=== PATIENT | male | born 1980 | race Caucasian/White ===

== ENCOUNTER 2017-03-21 19:26 | Observation (INO) | payer OTHER ==
[~2017-03-21] VITALS: Ht 182.9 cm; Wt 109.0 kg
[2017-03-21 19:29] VITALS: BP 141/85; PULSE 110; RESP 16; TEMP 98.5; O2SAT 100
[2017-03-21 21:39] VITALS: BP 155/98; PULSE 124; RESP 18; O2SAT 97
--- NOTE | 2017-03-21 22:00 | PD ---
HPI Chief Complaint: Numbness/Tingling Time Seen by Provider: 21:33 Travel History International Travel<30 days: No Contact w/Intl Traveler<30days: No Traveled to known affect area: No History of Present Illness HPI This is a 37-year-old male who presents to the emergency Department with onset of bilateral lower extremity weakness that started about 3 hours ago while he was out to dinner. Patient reports that he got up from a barstool and was unable to walk and fell. He reports that for the past 3 days he has been having low back pain ever since he started up on Friday and his low back and feel right. He describes a sharp stabbing pain in the left lower back, intermittent, worse with walking. He says his back pain is nearly resolved. Today he went to an urgent care for the pain and they gave him an injection of steroids and an injection of "a pain medicine that will make you loopy like morphine". Subsequently his pain improved but he developed weakness and numbness in his legs this afternoon. He's not had any recent illness, denies any recent diarrhea, new medications, or recent vaccinations. [facility] Past Medical History Diminished Hearing: No Tetanus Vaccination: < 5 Years ?: Not Past Surgical History Abdominal Surgery: No Cardiac Surgery: No Ear Surgery: No Endocrine Surgery: No Eye Surgery: Yes (PRK BILAT EYE) Social History Alcohol Use: Yes Tobacco Use: No Substance Use: No Allergies-Medications (Allergen,Severity, Reaction): Coded Allergies: No Known Allergies (Unverified , 03/21/17) Review of Systems Except as stated in HPI: all other systems reviewed are Neg Physical Exam Narrative GENERAL:Well appearing, no acute distress SKIN: Focused skin assessment warm and dry. HEAD: Atraumatic. Normocephalic. EYES: Pupils equal and round. No injection or drainage. ENT: Moist mucous membranes NECK: Trachea midline. CARDIOVASCULAR: Regular rate and rhythm. No murmur appreciated. RESPIRATORY: Clear to auscultation. Breath sounds equal bilaterally. GASTROINTESTINAL: Abdomen soft, non-tender, nondistended. MUSCULOSKELETAL: No obvious deformities. NEUROLOGICAL: Awake and alert. No obvious cranial nerve deficits. 4 out of 5 strength in the bilateral lower extremities. No clonus. Hyporeflexic patellar and Achilles reflexes. PSYCHIATRIC: Appropriate mood and affect; insight and judgment normal. Data Data Last Documented VS Vital Signs Date Time Temp Pulse Resp B/P (MAP) Pulse Ox O2 Delivery O2 Flow Rate FiO2 03/21/17 21:39 96 Room Air 03/21/17 21:39 124 18 155/98 (117) 03/21/17 19:29 98.5 Orders Orders Complete Blood Count With Diff (03/21/17 21:50) Comprehensive Metabolic Panel (03/21/17 21:50) ^ Insert Iv (03/21/17 21:50) Mri L Spine W/O Contrast (03/21/17 ) Sodium Chlor 0.9% 1000 Ml Inj (Ns 1000 M (03/21/17 23:15) Place In Observation (03/21/17 ) Vital Signs (Adult) Q4H (03/21/17 23:36) Activity Oob With Assistance (03/21/17 23:36) Diet Regular Basic (03/22/17 Breakfast) Sodium Chlor 0.9% 1000 Ml Inj (Ns 1000 M (03/21/17 23:36) Sodium Chloride 0.9% Flush (Ns Flush) (03/21/17 23:45) Sodium Chloride 0.9% Flush (Ns Flush) (03/22/17 09:00) Ondansetron Inj (Zofran Inj) (03/21/17 23:45) Comprehensive Metabolic Panel (03/22/17 06:00) Admit Order (Ed Use Only) (03/21/17 23:41) Complete Blood Count With Diff (03/22/17 06:00) Pt Request For Service (03/21/17 23:36) Scd Bilateral/Knee High ELIEZER.BID (03/21/17 23:36) Antwon Bilateral/Knee High ELIEZER.QSHIFT (03/21/17 23:41) Acetaminophen (Tylenol) (03/21/17 23:45) Acetamin-Hydrocod 325-5 Mg ([place] 5-325 (03/21/17 23:45) Morphine Inj (Morphine Inj) (03/21/17 23:45) Docusate Sodium-Senna (Janel-Colace) (03/22/17 09:00) Magnesium Hydroxide Liq (Milk Of Magnesi (03/21/17 23:45) Sennosides (Senokot) (03/21/17 23:45) Bisacodyl Supp (Dulcolax Supp) (03/21/17 23:45) Lactulose Liq (Lactulose Liq) (03/21/17 23:45) Consult Neurology (03/21/17 ) Labs Laboratory Tests Test 03/21/17 21:55 White Blood Count 16.1 TH/MM3 Red Blood Count 5.47 MIL/MM3 Hemoglobin 16.8 GM/DL Hematocrit 48.8 % Mean Corpuscular Volume 89.3 FL Mean Corpuscular Hemoglobin 30.8 PG Mean Corpuscular Hemoglobin Concent 34.4 % Red Cell Distribution Width 13.4 % Platelet Count 334 TH/MM3 Mean Platelet Volume 9.0 FL Neutrophils (%) (Auto) 87.3 % Lymphocytes (%) (Auto) 9.1 % Monocytes (%) (Auto) 3.1 % Eosinophils (%) (Auto) 0.1 % Basophils (%) (Auto) 0.4 % Neutrophils # (Auto) 14.1 TH/MM3 Lymphocytes # (Auto) 1.5 TH/MM3 Monocytes # (Auto) 0.5 TH/MM3 Eosinophils # (Auto) 0.0 TH/MM3 Basophils # (Auto) 0.1 TH/MM3 CBC Comment DIFF FINAL Differential Comment Blood Urea Nitrogen 13 MG/DL Creatinine 1.11 MG/DL Random Glucose 133 MG/DL Total Protein 8.3 GM/DL Albumin 4.2 GM/DL Calcium Level 9.3 MG/DL Alkaline Phosphatase 88 U/L Aspartate Amino Transf (AST/SGOT) 13 U/L Alanine Aminotransferase (ALT/SGPT) 35 U/L Total Bilirubin 0.4 MG/DL Sodium Level 137 MEQ/L Potassium Level 3.9 MEQ/L Chloride Level 105 MEQ/L Carbon Dioxide Level 22.5 MEQ/L Anion Gap 10 MEQ/L Estimat Glomerular Filtration Rate 74 ML/MIN [facility] Medical Decision Making Medical Screen Exam Complete: Yes Emergency Medical Condition: Yes Interpretation(s) Afebrile, tachycardic, hypertensive Leukocytosis 87% neutrophils Electrolytes are reassuring Differential Diagnosis Herniated disc, cauda equina syndrome, multiple sclerosis, Guillain-Melendez Narrative Course This is a 37-year-old male who presents to the emergency department with rapid onset bilateral lower extremity weakness and some numbness and tingling in both legs. He says he started with pain 2 days ago and his symptoms acutely worsened after he received a steroid injection and it medication for pain from an urgent care. He is objectively weak in both legs and hyporeflexic. Labs are obtained which were reassuring. MRI of the lumbar spine demonstrates no acute neurosurgical emergency. Patient will be admitted for neurologic evaluation. Physician Communication Physician Communication Discussed with Dr. Driscoll Diagnosis Primary Impression: Lower extremity weakness Qualified Codes: R29.898 - Other symptoms and signs involving the musculoskeletal system Admitting Information Admitting Physician Requests: Admit Chelsea Hogan MD Mar 21, 2017 22:00
[2017-03-21 22:28] LABS: AUTOMATED NEUTROPHIL # 14.1 TH/MM3 (1.8-7.7); BASOPHIL # 0.1 TH/MM3 (0-0.2); BASOPHIL % 0.4 % (0.0-2.0); EOSINOPHIL % 0.1 % (0.0-4.0); HEMATOCRIT 48.8 % (39.0-51.0); HEMO FLAGS DIFF FINAL; LYMPH % 9.1 % (9.0-44.0); LYMPHOCYTE # 1.5 TH/MM3 (1.0-4.8); MEAN CELL VOLUME 89.3 FL (80.0-100.0); MEAN CORPUSCULAR HEMOGLOBIN 30.8 PG (27.0-34.0); MEAN CORPUSCULAR HGB CONC 34.4 % (32.0-36.0); MONO % 3.1 % (0.0-8.0); NEUT % 87.3 % (16.0-70.0); PLATELET COUNT 334 TH/MM3 (150-450); RED BLOOD COUNT 5.47 MIL/MM3 (4.50-5.90); RED CELL DISTRIBUTION WIDTH 13.4 % (11.6-17.2); WHITE BLOOD COUNT 16.1 TH/MM3 (4.0-11.0)
[2017-03-21 22:44] LABS: ALT (GPT) 35 U/L (12-78); ANION GAP 10 MEQ/L (5-15); AST (GOT) 13 U/L (15-37); BICARBONATE 22.5 MEQ/L (21.0-32.0); BLOOD UREA NITROGEN 13 MG/DL (7-18); CHLORIDE 105 MEQ/L (98-107); POTASSIUM 3.9 MEQ/L (3.5-5.1); SODIUM (NA) 137 MEQ/L (136-145)
[2017-03-21 22:52] LABS: ALKALINE PHOSPHATASE 88 U/L (45-117); GLOMERULAR FILTRATION RATE 74 ML/MIN (>89); TOTAL BILIRUBIN ADULT 0.4 MG/DL (0.2-1.0)
--- NOTE | 2017-03-21 22:56 | RADRPT ---
EXAM DATE/TIME: 03/21/2017 22:22 [facility] COMPARISON: No previous studies available for comparison. INDICATIONS : Extremity weakness. MEDICAL HISTORY : Hypertension. SURGICAL HISTORY : Left shoulder. Vasectomy. Left leg. Right foot. ENCOUNTER: Initial ACUITY: 1 day PAIN SCORE: 5/10 LOCATION: Lower back. TECHNIQUE: Multiplanar multisequence MRI of the lumbar spine was performed without contrast. FINDINGS: The most caudal appearing lumbar vertebra is numbered as L5. VERTEBRAE: Homogeneous signal. Normal alignment. CONUS: Normal level and configuration. T12-L1: The thecal sac has a normal diameter. No evidence of disc bulge or protrusion. The neural foramina are patent bilaterally. L1-L2: The thecal sac has a normal diameter. No evidence of disc bulge or protrusion. The neural foramina are patent bilaterally. L2-L3: The thecal sac has a normal diameter. No evidence of disc bulge or protrusion. The neural foramina are patent bilaterally. L3-L4: There is very small, broad left paracentral/foraminal/lateral disc protrusion. Slight narrowing of th e left foramen. L4-L5: There is a small, broad right foraminal disc protrusion. Mild right foraminal stenosis. Mild bilatera l facet osteoarthritis. L5-S1: The thecal sac has a normal diameter. No evidence of disc bulge or protrusion. The neural foramina are patent bilaterally. CONCLUSION: 1. Mild degenerative changes at L3/L4 and L4/L5 as above. There slight left foraminal encroachment at L3/L4 and mild right foraminal encroachment at L4/L5. 2. Otherwise normal lumbar spine MRI. Boy Olsen MD on March 21, 2017 at 22:52 Board Certified Radiologist. This report was verified electronically.
[2017-03-21] MEDS ORDERED: SODIUM CHLOR 0.9% 1000 ML INJ 1,000 ML IV SCH (23:15)
--- NOTE | 2017-03-21 23:41 | HHI.HP ---
[facility] Service [facility] Primary Care Physician Unknown Admission Diagnosis weakness Diagnoses: (1) Lower extremity weakness Diagnosis: Principal (2) Back pain Diagnosis: Principal (3) Leukocytosis Diagnosis: Principal (4) Dehydration Diagnosis: Principal Travel History International Travel<30 Days: No Contact w/Intl Traveler <30 Da: No Traveled to Known Affected Are: No Past Family Social History Allergies: Coded Allergies: No Known Allergies (Unverified , 03/21/17) Physical Exam Vital Signs Vital Signs Date Time Temp Pulse Resp B/P (MAP) Pulse Ox O2 Delivery O2 Flow Rate FiO2 03/21/17 21:39 96 Room Air 03/21/17 21:39 124 18 155/98 (117) 97 Room Air 03/21/17 19:29 98.5 110 16 141/85 (103) 100 Room Air Physical Exam GENERAL: This is a well-nourished, well-developed patient, in no apparent distress. SKIN: No rashes, ecchymoses or lesions. Cool and dry. HEAD: Atraumatic. Normocephalic. No temporal or scalp tenderness. EYES: Pupils equal round and reactive. Extraocular motions intact. No scleral icterus. No injection or drainage. ENT: Nose without bleeding, purulent drainage or septal hematoma. Throat without erythema, tonsillar hypertrophy or exudate. Uvula midline. Airway patent. NECK: Trachea midline. No JVD or lymphadenopathy. Supple, nontender, no meningeal signs. CARDIOVASCULAR: Regular rate and rhythm without murmurs, gallops, or rubs. RESPIRATORY: Clear to auscultation. Breath sounds equal bilaterally. No wheezes , rales, or rhonchi. GASTROINTESTINAL: Abdomen soft, non-tender, nondistended. No hepato-splenomegaly , or palpable masses. No guarding. MUSCULOSKELETAL: Extremities without clubbing, cyanosis, or edema. No joint tenderness, effusion, or edema noted. No calf tenderness. Negative Homans sign bilaterally. NEUROLOGICAL: Awake and alert. Cranial nerves II through XII intact. Motor and sensory grossly within normal limits. Five out of 5 muscle strength in all muscle groups. Normal speech. Laboratory Laboratory Tests Test 03/21/17 21:55 White Blood Count 16.1 Red Blood Count 5.47 Hemoglobin 16.8 Hematocrit 48.8 Mean Corpuscular Volume 89.3 Mean Corpuscular Hemoglobin 30.8 Mean Corpuscular Hemoglobin Concent 34.4 Red Cell Distribution Width 13.4 Platelet Count 334 Mean Platelet Volume 9.0 Neutrophils (%) (Auto) 87.3 Lymphocytes (%) (Auto) 9.1 Monocytes (%) (Auto) 3.1 Eosinophils (%) (Auto) 0.1 Basophils (%) (Auto) 0.4 Neutrophils # (Auto) 14.1 Lymphocytes # (Auto) 1.5 Monocytes # (Auto) 0.5 Eosinophils # (Auto) 0.0 Basophils # (Auto) 0.1 CBC Comment DIFF FINAL Differential Comment Blood Urea Nitrogen 13 Creatinine 1.11 Random Glucose 133 Total Protein 8.3 Albumin 4.2 Calcium Level 9.3 Alkaline Phosphatase 88 Aspartate Amino Transf (AST/SGOT) 13 Alanine Aminotransferase (ALT/SGPT) 35 Total Bilirubin 0.4 Sodium Level 137 Potassium Level 3.9 Chloride Level 105 Carbon Dioxide Level 22.5 Anion Gap 10 Estimat Glomerular Filtration Rate 74 Result Diagram: 03/21/17215403/21/172154 Caprini VTE Risk Assessment Caprini VTE Risk Assessment: No/Low Risk (score <= 1) Caprini Risk Assessment Model Point Value = 1 Point Value = 2 Point Value = 3 Point Value = 5 Age 41-60 Minor surgery BMI > 25 kg/m2 Swollen legs Varicose veins or History of unexplained or recurrent spontaneous Oral contraceptives or hormone replacement Sepsis (< 1 month) Serious lung disease, including pneumonia (< 1 month) Abnormal pulmonary function Acute myocardial infarction Congestive heart failure (< 1 month) History of inflammatory bowel disease Medical patient at bed rest Age 61-74 Arthroscopic surgery Major open surgery (> 45 min) Laparoscopic surgery (> 45 min) Malignancy Confined to bed (> 72 hours) Immobilizing plaster cast Central venous access Age >= 75 History of VTE Family history of VTE Factor V Leiden Prothrombin [id number] Lupus anticoagulant Anticardiolipin antibodies Elevated serum homocysteine Heparin-induced thrombocytopenia Other congenital or acquired thrombophilia Stroke (< 1 month) Elective arthroplasty Hip, pelvis, or leg fracture Acute spinal cord injury (< 1 month) Prophylaxis Regimen Total Risk Factor Score Risk Level Prophylaxis Regimen 0-1 Low Early ambulation 2 Moderate Order ONE of the following: *Sequential Compression Device (SCD) *Heparin 5000 units SQ BID 3-4 Higher Order ONE of the following medications: *Heparin 5000 units SQ TID *Enoxaparin/Lovenox 40 mg SQ daily (WT < 150 kg, CrCl > 30 mL/min) *Enoxaparin/Lovenox 30 mg SQ daily (WT < 150 kg, CrCl > 10-29 mL/min) *Enoxaparin/Lovenox 30 mg SQ BID (WT < 150 kg, CrCl > 30 mL/min) AND/OR *Sequential Compression Device (SCD) 5 or more Highest Order ONE of the following medications: *Heparin 5000 units SQ TID (Preferred with Epidurals) *Enoxaparin/Lovenox 40 mg SQ daily (WT < 150 kg, CrCl > 30 mL/min) *Enoxaparin/Lovenox 30 mg SQ daily (WT < 150 kg, CrCl > 10-29 mL/min) *Enoxaparin/Lovenox 30 mg SQ BID (WT < 150 kg, CrCl > 30 mL/min) AND *Sequential Compression Device (SCD) Assessment and Plan Problem List: (1) Lower extremity weakness ICD Code: R29.898 - Other symptoms and signs involving the musculoskeletal system (2) Back pain ICD Code: M54.9 - Dorsalgia, unspecified (3) Dehydration ICD Code: E86.0 - Dehydration (4) Leukocytosis ICD Code: D72.829 - Elevated white blood cell count, unspecified Assessment and Plan A/P: 1. Lower Extremity Weakness: acute onset, no injury/trauma. +Hyporeflexia, ? GBS, possible LP. MRI w/ no acute findings, images reviewed by me. Eval for possible muscle disease-check CPK, U/a, aldolase, LDH. Check ESR/CRP for possible Vasculitis. Check lower extremity EMG for peripheral neuropathy. S/p steroid injection, ? steroid myopathy however very rapid onset-would need muscle biopsy. Consult Neurology for further recommendations. 2. Back Pain: s/p steroid/analgesic injection at Urgent Care, pain currently improved. Continue w/ analgesics as needed. 3. Leukocytosis: WBC 16, possibly related to steroids, however injection only few hours prior. No signs of infection at this time. Check U/a. Repeat labs in am. 4. Dehydration: GFR 74, BUN/Creatinine normal. Check U/a, IVF for hydration, repeat labs in am. 5. DVT Prophylaxis: SCD/Teds. 6. Social work for d/c planning as needed. 7. Case discussed w/ ER physician at length. Problem Qualifiers (1) Lower extremity weakness: Qualified Codes: R29.898 - Other symptoms and signs involving the musculoskeletal system Ching Jeffery MD Mar 21, 2017 23:41
[2017-03-21] MEDS ORDERED: GADODIAMIDE PF 287 MG/ML 20 ML VIAL (for RAD MRI) IVCONTRAST ONE (23:43)
[2017-03-21] MEDS ORDERED: LACTULOSE SYRUP 20 GM/30 ML CUP PO PRN (23:45)
[2017-03-21] MEDS ORDERED: SENNOSIDES 8.6 MG TAB PO PRN (23:45)
[2017-03-21] MEDS ORDERED: BISACODYL 10 MG SUPP RECTAL PRN (23:45)
[2017-03-21] MEDS ORDERED: MORPHINE SULFATE 4 MG/ML INJ IV PUSH PRN (23:45)
[2017-03-21] MEDS ORDERED: MAGNESIUM HYDROXIDE SUSP 30 ML CUP PO PRN (23:45)
[2017-03-21] MEDS ORDERED: ACETAMINOPHEN 325 MG TAB PO PRN (23:45)
[2017-03-21] MEDS ORDERED: SODIUM CHLORIDE 0.9% FLUSH 10 ML FLUSH IV FLUSH PRN (23:45)
[2017-03-21] MEDS ORDERED: ONDANSETRON HCL 4 MG/2 ML VIAL IVP PRN (23:45)
[2017-03-22] VITALS (7 sets, daily range): BP systolic 130–139; BP diastolic 66–81; PULSE 75–94; RESP 18; TEMP 97.6–98.5; O2SAT 96–98
[2017-03-22] MEDS: ACETAMINOPHEN/HYDROcodone 325 MG/5 MG TAB PO PRN ×2 (01:16→08:59)
[2017-03-22] MEDS: SODIUM CHLOR 0.9% 1000 ML INJ 1,000 ML IV SCH ×2 (01:18→08:56)
[2017-03-22 02:17] LABS: BLOOD, URINE NEG (NEG); COMMENT (UR) CULT NOT INDICATED; CULTURE IF INDICATED CULT NOT INDICATED; GLUCOSE,URINE NEG (NEG); KETONE, URINE NEG (NEG); MUCUS URINE FEW /lpf (OCC); NITRITE,URINE NEG (NEG); PH, URINE 5.5 (5.0-8.5); URINE COLOR YELLOW (YELLW/STRAW)
[2017-03-22 08:20] LABS: AUTOMATED NEUTROPHIL # 13.4 TH/MM3 (1.8-7.7); BASOPHIL % 0.1 % (0.0-2.0); EOSINOPHIL % 0.2 % (0.0-4.0); HEMATOCRIT 41.1 % (39.0-51.0); HEMO FLAGS DIFF FINAL; LYMPH % 16.3 % (9.0-44.0); LYMPHOCYTE # 2.8 TH/MM3 (1.0-4.8); MEAN CELL VOLUME 89.8 FL (80.0-100.0); MEAN CORPUSCULAR HEMOGLOBIN 31.1 PG (27.0-34.0); MEAN CORPUSCULAR HGB CONC 34.6 % (32.0-36.0); MONO % 6.5 % (0.0-8.0); NEUT % 76.9 % (16.0-70.0); PLATELET COUNT 259 TH/MM3 (150-450); RED BLOOD COUNT 4.57 MIL/MM3 (4.50-5.90); RED CELL DISTRIBUTION WIDTH 13.3 % (11.6-17.2); WHITE BLOOD COUNT 17.5 TH/MM3 (4.0-11.0)
[2017-03-22 08:50] LABS: ALKALINE PHOSPHATASE 71 U/L (45-117); ALT (GPT) 29 U/L (12-78); ANION GAP 5 MEQ/L (5-15); AST (GOT) 7 U/L (15-37); BICARBONATE 24.6 MEQ/L (21.0-32.0); BLOOD UREA NITROGEN 13 MG/DL (7-18); CHLORIDE 108 MEQ/L (98-107); GLOMERULAR FILTRATION RATE 102 ML/MIN (>89); POTASSIUM 4.1 MEQ/L (3.5-5.1); SODIUM (NA) 138 MEQ/L (136-145); TOTAL BILIRUBIN ADULT 0.4 MG/DL (0.2-1.0)
[2017-03-22] MEDS: DOCUSATE SODIUM 50 MG/SENNA 8.6 MG TAB PO SCH ×2 (08:55→21:00)
[2017-03-22] MEDS: SODIUM CHLORIDE 0.9% FLUSH 10 ML FLUSH IV FLUSH SCH ×2 (08:55→21:00)
[2017-03-22] MEDS ORDERED: INFLUENZA VIRUS VACCINE (QUADRIVALENT) 0.5 ML SYR IM ONE (09:00)
[2017-03-22] MEDS ORDERED: PNEUMOCOCCAL POLYVALENT INJ 25 MCG/0.5 ML SYR IM ONE (09:00)
--- NOTE | 2017-03-22 09:53 | HHI.PR ---
Subjective Remarks Follow up for back pain, bilateral lower extremity weakness. The patient reports Friday night 03/19 he stood up from the cough and felt immediate left lumbar pain with radiation into the left buttocks. That night and throughout the next day he was taking motrin and using ice packs however pain was unrelieved therefore yesterday 03/21 he went to [facility] in the morning. At the urgent care, he received IM Decadron and IM Toradol then given prescriptions for Ultram, Medrol dose pack, and Flexeril, which he filled but did not yet take any yet. He went to dinner 6hours later, ordered an appetizer and drank half a beer, then stood up to use the restroom however his legs gave out on him and he was unable to walk. Today he feels better but not yet back to baseline. He is able to ambulate the hallways without difficulty. He has continued left lower lumbar pain. Denies any saddle anesthesia or incontinence. Denies any other medical complaints at this time. 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 Objective Vitals Vital Signs Date Time Temp Pulse Resp B/P (MAP) Pulse Ox O2 Delivery O2 Flow Rate FiO2 03/22/17 08:48 97.9 90 18 131/80 (97) 98 03/22/17 04:24 98.2 86 18 137/67 (90) 96 03/22/17 02:35 15 03/22/17 01:21 98.4 90 18 138/75 (96) 96 03/21/17 21:39 96 Room Air 03/21/17 21:39 124 18 155/98 (117) 97 Room Air 03/21/17 19:29 98.5 110 16 141/85 (103) 100 Room Air I/O 03/21/17 03/21/17 03/21/17 03/22/17 03/22/17 03/22/17 07:00 15:00 23:00 07:00 15:00 23:00 Intake Total 800 ml Balance 800 ml Intake IV Total 800 ml Result Diagram: 03/22/17 0700 03/22/17 0700 Imaging Last Impressions Lumbar Spine MRI 03/21/17 0000 Signed Impressions: Service Date/Time: Tuesday, March 21, 2017 22:22 - CONCLUSION: 1. Mild degenerative changes at L3/L4 and L4/L5 as above. There slight left foraminal encroachment at L3/L4 and mild right foraminal encroachment at L4/L5. 2. Otherwise normal lumbar spine MRI. Boy Olsen MD Objective Remarks GENERAL: Well-nourished, well-developed middle age male patient in [facility]. SKIN: Warm and dry. No rash. HEENT: Normocephalic. Atraumatic. Pupils equal and round. Mucous membranes pink and moist. NECK: Supple. Trachea midline. CARDIOVASCULAR: Regular rate and rhythm. S1, S2 noted. No murmur appreciated. RESPIRATORY: No accessory muscle use. Clear to auscultation. Breath sounds equal bilaterally. GASTROINTESTINAL: Abdomen soft, non-tender, nondistended. Normoactive bowel sounds x4. MUSCULOSKELETAL: No obvious deformities. Extremities without clubbing, cyanosis , or edema. Left lumbar paraspinous muscle TTP with +spasm. NEUROLOGICAL: Awake and alert. No obvious cranial nerve deficits. Motor grossly within normal limits. 5/5 muscle strength in bilateral upper and lower extremities. Normal speech. PSYCHIATRIC: Appropriate mood and affect; insight and judgment normal. Medications and IVs Current Medications Medications (Trade) Dose Ordered Sig/Jimena Route Start Time Stop Time Status Last Admin Sodium Chloride 1,000 ml @ 100 mls/hr Q10H IV 03/21/17 23:36 03/22/17 08:56 (NS Flush) 2 ml UNSCH PRN IV FLUSH 03/21/17 23:45 (NS Flush) 2 ml BID IV FLUSH 03/22/17 09:00 03/22/17 08:55 (Zofran Inj) 4 mg Q6H PRN IVP 03/21/17 23:45 (Tylenol) 650 mg Q6H PRN PO 03/21/17 23:45 ([place] 5-325 Mg) 1 tab Q4H PRN PO 03/21/17 23:45 03/22/17 08:59 (Morphine Inj) 4 mg Q3H PRN IV PUSH 03/21/17 23:45 (Janel-Colace) 1 tab BID PO 03/22/17 09:00 (Milk Of Magnesia Liq) 30 ml Q12H PRN PO 03/21/17 23:45 (Senokot) 17.2 mg Q12H PRN PO 03/21/17 23:45 (Dulcolax Supp) 10 mg DAILY PRN RECTAL 03/21/17 23:45 (Lactulose Liq) 30 ml DAILY PRN PO 03/21/17 23:45 A/P Problem List: (1) Lower extremity weakness ICD Code: R29.898 - Other symptoms and signs involving the musculoskeletal system (2) Back pain ICD Code: M54.9 - Dorsalgia, unspecified (3) Dehydration ICD Code: E86.0 - Dehydration (4) Leukocytosis ICD Code: D72.829 - Elevated white blood cell count, unspecified Assessment and Plan 37-year-old male with no significant past medical history, s/p 20years service with [employer], presents with a 3day history of intractable low back pain, and acute onset lower extremity weakness Acute Bilateral Lower Extremity Weakness: no recent injury/trauma, however 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 Possible medication side effect. + Hyporeflexia, ? GBS, possible LP? MRI with some degenerative changes, no acute findings, images reviewed by me. Eval for possible muscle disease-check CPK, U/ a, aldolase, LDH. Check ESR/CRP for possible Vasculitis, ESR negative, CRP pending. Check lower extremity EMG for peripheral neuropathy. S/p steroid injection, ? steroid myopathy however very rapid onset-would need muscle biopsy. Consult Neurology for further recommendations. Consult PT. Lumbar Pain: s/p steroid/analgesic injection at Urgent Care, pain currently improved. Continue w/ analgesics as needed. K thermia. Scheduled IV Toradol. Leukocytosis: WBC 16, possibly related to steroids, however injection only few hours prior. No signs of infection at this time. Afebrile. UA negative. Dehydration: GFR 74, Cr 1.11. Given IVF for hydration, repeat labs show improvement with Cr 0.84. Encourage oral hydration. DVT Prophylaxis: SCD/Teds. Discharge Planning 0950hrs: Discharge pending further clinical improvement and evaluation by neurology. Problem Qualifiers (1) Lower extremity weakness: Qualified Codes: R29.898 - Other symptoms and signs involving the musculoskeletal system Esmer Ramon PA-C Mar 22, 2017 9:53 am
[2017-03-22] MEDS ORDERED: CYCLOBENZAPRINE HCL 10 MG TAB PO PRN (10:30)
[2017-03-22] MEDS ORDERED: KETOROLAC TROMETHAMINE 30 MG/ML (IVP) VIAL IV PUSH SCH (12:00)
--- NOTE | 2017-03-22 14:52 | RADRPT ---
EXAM DATE/TIME: 03/22/2017 14:09 [facility] COMPARISON: No previous studies available for comparison. INDICATIONS : Inability to ambulate. Resolving. MEDICAL HISTORY : Hypertension. SURGICAL HISTORY : Colon resection. Orthopaedic. ENCOUNTER: Initial ACUITY: 1 day PAIN SCORE: 0/10 LOCATION: [place] TECHNIQUE: Multiplanar multisequence MRI of the thoracic spine was performed. FINDINGS: VERTEBRA: Normal vertebral body height. Focal increased T1 and decreased T2 signal in the T5 vertebral bod y likely reflecting a small hemangioma. Otherwise, homogeneous marrow signal. ALIGNMENT: Normal. CORD: Normal position and configuration. T1-T2: Normal. T2-T3: The thecal sac has a normal diameter. No evidence of disc bulge or protrusion. T3-T4: The thecal sac has a normal diameter. No evidence of disc bulge or protrusion. T4-T5: The thecal sac has a normal diameter. No evidence of disc bulge or protrusion. T5-T6: The thecal sac has a normal diameter. No evidence of disc bulge or protrusion. T6-T7: Eccentric left paracentral disc osteophyte complex effacing the anterior left lateral recess. No sign ificant neural foraminal stenosis. T7-T8: Central posterior disc protrusion with mild effacement of the anterior thecal sac. No significant rosana tral canal or neural foraminal stenosis. T8-T9: The thecal sac has a normal diameter. No evidence of disc bulge or protrusion. T9-T10: The thecal sac has a normal diameter. No evidence of disc bulge or protrusion. T10-T11: The thecal sac has a normal diameter. No evidence of disc bulge or protrusion. T11-T12: The thecal sac has a normal diameter. No evidence of disc bulge or protrusion. T12-L1: The thecal sac has a normal diameter. No evidence of disc bulge or protrusion. CONCLUSION: 1. Probable small T5 vertebral body Hemangioma. 2. Mild degenerative spondylosis of the mid thoracic spine most prominently at T6-7 with eccentric le ft paracentral disc osteophyte complex effacing the anterior left lateral recess and flattening the a nterior cord. 3. Otherwise, no significant central canal stenosis or cord signal abnormality. Morgan Logan MD on March 22, 2017 at 14:45 Board Certified Radiologist. This report was verified electronically.
--- NOTE | 2017-03-22 15:11 | MB ---
cc: JUAN MIGUEL FINK M.D. DATE OF CONSULTATION: 03/22/2017. REASON FOR CONSULTATION: Lower extremity weakness. HISTORY OF PRESENT ILLNESS: Mr. Aguilera is a 37-year-old man who for the past couple of days has had new-onset low back pain. Yesterday he went an urgent care where he was given an injection of Decadron and placed on a Medrol Dosepack. Yesterday evening around 6:30 in the evening when he stood up from a seated position, he fell because of leg weakness. He had profound weakness in both legs with difficulty in moving the legs as well as numbness from the thigh area down. No bladder complaints. His legs are stronger today. He denied any other neurologic complaints. No history of upper extremity weakness. No visual complaints. PAST MEDICAL HISTORY: 1. He has a history of hypertension. 2. History of eye surgery bilaterally. ALLERGIES: NONE KNOWN. CURRENT MEDICATIONS: 1. Flexeril for pain. 2. Colace. 3. Zofran PRN. 4. Tylenol PRN. 5. Bradley PRN. 6. Dulcolax. 7. Senokot. NEUROLOGICAL EXAMINATION: VITAL SIGNS: Blood pressure is 139/81, pulse 85, respiratory rate 18, temperature is 97.6 degrees. HIGHER CORTICAL FUNCTIONS: Normal. CRANIAL NERVES: Intact. Pupils equal and reactive. The extraocular movements are normal. MOTOR EXAM: Normal in both upper extremities. He has weakness of the iliopsoas symmetrically at 4/5 on the right and 4+/5 left. Quads are 5/5 symmetric. Hamstrings 4+/5 on the right and 5/5 on the left. Tibialis anterior 5/5 symmetric. Gastrocnemius 5/5 symmetric. SENSORY EXAM: Intact. REFLEXES: 2+ symmetric with no Babinski sign. IMAGING STUDIES: MRI of the lumbar spine was reviewed. Mild degenerative disc disease identified at L3-4 and L4-5 areas with no evidence of any significant stenosis. The conus medullaris is normal. LABS: White count 17,500, hemoglobin is 14.2, platelet count 259,000, hematocrit 41.1%. Sedimentation rate is 11. Sodium 138, potassium 4.1, chloride 108, carbon dioxide 24.6, the BUN is 13, creatinine 0.84, GFR is 102, glucose 102. C-reactive protein 0.3. CPK 85. IMPRESSION: He has mild spondylosis on the lumbar MRI but I would not expect this to account for his symptoms. Rule out cervical or thoracic myelopathy. With the sudden onset, we need to rule out other etiologies such as spinal cord infarction, AVM, structural lesion, or transverse myelitis. RECOMMENDATIONS: Would like to proceed with an MRI of the cervical as well as the thoracic spine. MD BESS Lozano/TREV /1:27 PM /2:56 PM
--- NOTE | 2017-03-22 15:14 | RADRPT ---
EXAM DATE/TIME: 03/22/2017 14:09 [facility] COMPARISON: No previous studies available for comparison. INDICATIONS : Myelopathy. Inability to ambulate, resolving. MEDICAL HISTORY : Hypertension. SURGICAL HISTORY : Colon resection. Orthopaedic. ENCOUNTER: Initial ACUITY: 1 day PAIN SCORE: 0/10 LOCATION: Paraspinal TECHNIQUE: Multiplanar, multisequence MRI examination of the cervical spine was performed. FINDINGS: VERTEBRAE: Normal vertebral body height. Homogeneous marrow signal. ALIGNMENT: No evidence of subluxation. CORD: Normal configuration and signal. POST FOSSA: The cerebellar tonsils are normal in position. C2-C3: The thecal sac has a normal configuration. There is no evidence of disc herniation or spinal canal s tenosis. The neural foramina are patent bilaterally. C3-C4: Diffuse disc bulge and uncovertebral osteophytes. Mild bilateral facet arthropathy. Effacement of the anterior thecal sac and abutting the cord with subtle flattening of the cord. No cord signal abnorma lity. Moderate bilateral neural foraminal stenosis. C4-C5: Minimal uncovertebral osteophytes and facet arthropathy without significant central canal or neural f oraminal stenosis. C5-C6: Minimal uncovertebral osteophytes and facet arthropathy. No significant central canal or neural jessica inal stenosis. C6-C7: Diffuse disc bulge with uncovertebral osteophytes. Mild effacement of the anterior thecal sac. Modera te right neural foraminal stenosis. C7-T1: Left paracentral disc osteophyte complex effacing the left lateral recess. No significant neural fora enid stenosis. CONCLUSION: 1. Multilevel degenerative spondylosis most prominently at C3-4 and C6-T1, as above. 2. No significant cord signal abnormality. Morgan Logan MD on March 22, 2017 at 15:08 Board Certified Radiologist. This report was verified electronically.
[2017-03-22] MEDS ORDERED: AMBI10TA PO (18:27)
[2017-03-22] MEDS: ZOLPIDEM TARTRATE 10 MG TAB PO PRN (21:06)
[2017-03-23] MEDS: SODIUM CHLOR 0.9% 1000 ML INJ 1,000 ML IV SCH ×3 (03:30→14:47)
[2017-03-23 03:40] VITALS: BP 134/63; PULSE 95; RESP 18; TEMP 98.7; O2SAT 97
[2017-03-23 07:42] VITALS: BP 160/107; PULSE 83; RESP 20; TEMP 98; O2SAT 96
[2017-03-23] MEDS: DOCUSATE SODIUM 50 MG/SENNA 8.6 MG TAB PO SCH ×2 (08:00→20:27)
[2017-03-23] MEDS: SODIUM CHLORIDE 0.9% FLUSH 10 ML FLUSH IV FLUSH SCH ×2 (08:00→20:27)
--- NOTE | 2017-03-23 11:09 | HHI.PR ---
Review/Management Diagnosis bilateral LE weakness of abrupt onset now improving--possible thoracic myelopathy.?? due to mild spondylosis at T56. r/o spinal AVM. I doubt transverse myelitis with abrupt onset and rapid improvement. THe time course is not consistent with Guillain [place]. Plan MRI cervical and thoracic spine with and without contrast MRI brain--r/o MS neurosurgery consult for opinion regarding thoracic MRI Diagnosis/Plan: Subjective Subjective Comments No acute events reported He reports improvement in LE strength but still has some weakness Active Medications Current Medications Medications (Trade) Dose Ordered Sig/Jimena Route Start Time Stop Time Status Last Admin Sodium Chloride 1,000 ml @ 100 mls/hr Q10H IV 03/21/17 23:36 03/23/17 03:30 (NS Flush) 2 ml UNSCH PRN IV FLUSH 03/21/17 23:45 (NS Flush) 2 ml BID IV FLUSH 03/22/17 09:00 03/22/17 08:55 (Zofran Inj) 4 mg Q6H PRN IVP 03/21/17 23:45 (Tylenol) 650 mg Q6H PRN PO 03/21/17 23:45 ([place] 5-325 Mg) 1 tab Q4H PRN PO 03/21/17 23:45 03/22/17 08:59 (Morphine Inj) 4 mg Q3H PRN IV PUSH 03/21/17 23:45 (Janel-Colace) 1 tab BID PO 03/22/17 09:00 (Milk Of Magnesia Liq) 30 ml Q12H PRN PO 03/21/17 23:45 (Senokot) 17.2 mg Q12H PRN PO 03/21/17 23:45 (Dulcolax Supp) 10 mg DAILY PRN RECTAL 03/21/17 23:45 (Lactulose Liq) 30 ml DAILY PRN PO 03/21/17 23:45 (Flexeril) 10 mg Q8H PRN PO 03/22/17 10:30 03/23/17 07:46 (Ambien) 20 mg HS PRN PO 03/22/17 18:30 03/22/17 21:06 Allergies Allergies Coded Allergies No Known Allergies (Unverified03/21/17) Exam I&O / VS Vital Signs Date Time Temp Pulse Resp B/P (MAP) Pulse Ox O2 Delivery O2 Flow Rate FiO2 03/23/17 07:42 98.0 83 20 160/107 (124) 96 03/23/17 03:40 98.7 95 18 134/63 (86) 97 03/22/17 23:23 98.4 76 18 130/76 (94) 97 03/22/17 19:34 98.2 75 18 130/78 (95) 97 03/22/17 15:06 98.5 94 18 137/66 (89) 97 03/22/17 11:28 97.6 85 18 139/81 (100) 97 Exam Comments alert, speech normal CN intact MOTOR 5/5 BUE and 4/5 right iliopsoas. 4+/5 left iliopsoas 4+/5 bilateral quadriceps. 4/5 right hamstring and 4+/5 left hamstring. 5/5 tibialis anterior bilaterally DTR 1+ symmetric Objective Radiology Results MRI cervical spine--cervical spondylosis at several levels without cord compresson MRI t spine--spondylosis at T56 with anterior cord compression but no signal abnormality within the cord and still rim of CSF around cord Ricky Montaño PhD MD Mar 23, 2017 11:09
--- NOTE | 2017-03-23 11:29 | HHI.PR ---
Subjective Remarks Follow up for low back pain, BLE weakness. The patient reports continued left lumbar pain, no radiation. He does not want any pain medications. He reports continued bilateral lower extremity weakness although has been able to ambulate. He denies any distal numbness or tingling. He has no other medical complaints at this time. Objective Vitals Vital Signs Date Time Temp Pulse Resp B/P (MAP) Pulse Ox O2 Delivery O2 Flow Rate FiO2 03/23/17 07:42 98.0 83 20 160/107 (124) 96 03/23/17 03:40 98.7 95 18 134/63 (86) 97 03/22/17 23:23 98.4 76 18 130/76 (94) 97 03/22/17 19:34 98.2 75 18 130/78 (95) 97 03/22/17 15:06 98.5 94 18 137/66 (89) 97 03/22/17 11:28 97.6 85 18 139/81 (100) 97 I/O 03/22/17 03/22/17 03/22/17 03/23/17 03/23/17 03/23/17 06:59 14:59 22:59 06:59 14:59 22:59 Intake Total 800 ml Output Total 500 ml Balance 300 ml Intake IV Total 800 ml Output Urine Total 500 ml Result Diagram: 03/22/17 0700 03/22/17 0700 Imaging Last Impressions Thoracic Spine MRI 03/22/17 0000 Signed Impressions: Service Date/Time: Wednesday, March 22, 2017 14:09 - CONCLUSION: 1. Probable small T5 vertebral body Hemangioma. 2. Mild degenerative spondylosis of the mid thoracic spine most prominently at T6-7 with eccentric left paracentral disc osteophyte complex effacing the anterior left lateral recess and flattening the anterior cord. 3. Otherwise, no significant central canal stenosis or cord signal abnormality. Morgan Logan MD Cervical Spine MRI 03/22/17 0000 Signed Impressions: Service Date/Time: Wednesday, March 22, 2017 14:09 - CONCLUSION: 1. Multilevel degenerative spondylosis most prominently at C3-4 and C6-T1, as above. 2. No significant cord signal abnormality. Morgan Logan MD Lumbar Spine MRI 03/21/17 0000 Signed Impressions: Service Date/Time: Tuesday, March 21, 2017 22:22 - CONCLUSION: 1. Mild degenerative changes at L3/L4 and L4/L5 as above. There slight left foraminal encroachment at L3/L4 and mild right foraminal encroachment at L4/L5. 2. Otherwise normal lumbar spine MRI. Boy Olsen MD Objective Remarks GENERAL: Well-nourished, well-developed middle age male patient in [facility]. SKIN: Warm and dry. No rash. HEENT: Normocephalic. Atraumatic. Pupils equal and round. Mucous membranes pink and moist. NECK: Supple. Trachea midline. CARDIOVASCULAR: Regular rate and rhythm. S1, S2 noted. No murmur appreciated. RESPIRATORY: No accessory muscle use. Clear to auscultation. Breath sounds equal bilaterally. GASTROINTESTINAL: Abdomen soft, non-tender, nondistended. Normoactive bowel sounds x4. MUSCULOSKELETAL: No obvious deformities. Extremities without clubbing, cyanosis , or edema. Left lumbar paraspinous muscle TTP with +spasm. NEUROLOGICAL: Awake and alert. No obvious cranial nerve deficits. Motor grossly within normal limits. 5/5 muscle strength in bilateral upper and lower extremities. Normal speech. PSYCHIATRIC: Appropriate mood and affect; insight and judgment normal. Medications and IVs Current Medications Medications (Trade) Dose Ordered Sig/Jimena Route Start Time Stop Time Status Last Admin Sodium Chloride 1,000 ml @ 100 mls/hr Q10H IV 03/21/17 23:36 03/23/17 03:30 (NS Flush) 2 ml UNSCH PRN IV FLUSH 03/21/17 23:45 (NS Flush) 2 ml BID IV FLUSH 03/22/17 09:00 03/22/17 08:55 (Zofran Inj) 4 mg Q6H PRN IVP 03/21/17 23:45 (Tylenol) 650 mg Q6H PRN PO 03/21/17 23:45 ([place] 5-325 Mg) 1 tab Q4H PRN PO 03/21/17 23:45 03/22/17 08:59 (Morphine Inj) 4 mg Q3H PRN IV PUSH 03/21/17 23:45 (Janel-Colace) 1 tab BID PO 03/22/17 09:00 (Milk Of Magnesia Liq) 30 ml Q12H PRN PO 03/21/17 23:45 (Senokot) 17.2 mg Q12H PRN PO 03/21/17 23:45 (Dulcolax Supp) 10 mg DAILY PRN RECTAL 03/21/17 23:45 (Lactulose Liq) 30 ml DAILY PRN PO 03/21/17 23:45 (Flexeril) 10 mg Q8H PRN PO 03/22/17 10:30 03/23/17 07:46 (Ambien) 20 mg HS PRN PO 03/22/17 18:30 03/22/17 21:06 A/P Problem List: (1) Lower extremity weakness ICD Code: R29.898 - Other symptoms and signs involving the musculoskeletal system (2) Back pain ICD Code: M54.9 - Dorsalgia, unspecified (3) Dehydration ICD Code: E86.0 - Dehydration (4) Leukocytosis ICD Code: D72.829 - Elevated white blood cell count, unspecified Assessment and Plan 37-year-old male with no significant past medical history, s/p 20years service with [employer], presents with a 3day history of intractable low back pain, and acute onset lower extremity weakness Acute Bilateral Lower Extremity Weakness: no recent injury/trauma, however 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 Possible medication side effect. + Hyporeflexia. Possible myelopathy. Not consistent with Guillain [place]. -Lumbar MRI with some degenerative changes, no acute findings, images reviewed by me. -Cervical MRI with multilevel degenerative spondylosis; no significant cord signal abnormality -Thoracic MRI with probable small T5 vertebral body hemagioma; spondylosis of mid thoracic spine at T6-7 -Eval for possible muscle disease-check CPK/ESR wnl, U/a negative, aldolase pending, LDH wnl. -Check lower extremity EMG for peripheral neuropathy. -S/p steroid injection, ? steroid myopathy however very rapid onset-would need muscle biopsy. -Consulted Neurology, appreciate recommendations. -Consult PT. -Neurosurgery consulted Lumbar Pain: s/p steroid/analgesic injection at Urgent Care, pain currently improved. Continue w/ analgesics as needed. K thermia. Leukocytosis: WBC 16, possibly related to steroids, however injection only few hours prior. No signs of infection at this time. Afebrile. UA negative. Dehydration: GFR 74, Cr 1.11. Given IVF for hydration, repeat labs show improvement with Cr 0.84. Encourage oral hydration. DVT Prophylaxis: SCD/Teds. Discharge Planning Discharge pending further clinical improvement, work up, and evaluation by neurosurgery. Possible discharge tomorrow. Problem Qualifiers (1) Lower extremity weakness: Qualified Codes: R29.898 - Other symptoms and signs involving the musculoskeletal system Esmer Ramon PA-C Mar 23, 2017 11:29 am
[2017-03-23 11:33] VITALS: BP 137/83; PULSE 87; RESP 20; TEMP 98.2; O2SAT 97
--- NOTE | 2017-03-23 13:43 | RADRPT ---
EXAM DATE/TIME: 03/23/2017 12:28 [facility] COMPARISON: No previous studies available for comparison. INDICATIONS : Inability to ambulate. Spinal AVM. CONTRAST: 20 cc Omniscan (gadodiamide) IV MEDICAL HISTORY : Hypertension. SURGICAL HISTORY : Orthodpedic. ENCOUNTER: Initial ACUITY: 3 day PAIN SCORE: 3/10 LOCATION: Paraspinal TECHNIQUE: Multiplanar, multisequence MRI of the brain was performed both prior to and following the administrat ion of paramagnetic contrast. FINDINGS: CEREBRUM: The ventricles are normal for age. No evidence of midline shift, mass lesion, hemorrhage or acute in farction. No extraaxial fluid collections are seen. The pituitary gland and suprasellar cistern are normal in configuration. WHITE MATTER: No significant signal abnormalities are seen in the white matter. POSTERIOR FOSSA: The cerebellum and brainstem are intact. The 4th ventricle is midline. The cerebellopontine angle is unremarkable. The cerebellar tonsils are normal in position. DIFFUSION IMAGING: No focal areas of restricted diffusion are seen. No evidence of acute infarction. EXTRACRANIAL: The visualized portions of the orbits and paranasal sinuses are unremarkable. POST-CONTRAST: No abnormal areas of parenchymal or dural enhancement. No evidence of blood-brain barrier breakdown. CONCLUSION: Normal examination. Marquise Plaza MD on March 23, 2017 at 13:41 Board Certified Radiologist. This report was verified electronically.
--- NOTE | 2017-03-23 13:46 | RADRPT ---
EXAM DATE/TIME: 03/23/2017 12:28 [facility] COMPARISON: MRI CERVICAL SPINE W/O CONTRAST, March 22, 2017, 14:09. INDICATIONS : Inability to ambulate. Spinal AVM. CONTRAST: 20 cc Omniscan (gadodiamide) IV MEDICAL HISTORY : Hypertension. SURGICAL HISTORY : Orthopedic. ENCOUNTER: Subsequent ACUITY: 3 day PAIN SCORE: 3/10 LOCATION: Paraspinal Known MRI Precautions: Sedation utilized? NO Anesthesia present? MRI reaction? If YES, explain: TECHNIQUE: Multiplanar, multisequence MRI examination of the cervical spine was performed. FINDINGS: VERTEBRAE: Normal vertebral body height. Homogeneous marrow signal. ALIGNMENT: No evidence of subluxation. CORD: Normal configuration and signal. POST FOSSA: The cerebellar tonsils are normal in position. POST-CONTRAST: No abnormal areas of enhancement are seen. C2-C3: The thecal sac has a normal configuration. There is no evidence of disc herniation or spinal canal stenosis. The neural foramina are patent bilaterally. C3-C4: The thecal sac is slightly narrowed due to a small central disc protrusion. There is no evidence of spinal canal stenosis. The neural foramina are patent bilaterally. C4-C5: The thecal sac has a normal configuration. There is no evidence of disc herniation or spinal canal s tenosis. The neural foramina are patent bilaterally. C5-C6: The thecal sac has a normal configuration. There is no evidence of disc herniation or spinal canal s tenosis. The neural foramina are patent bilaterally. C6-C7: The thecal sac has a normal configuration. There is no evidence of disc herniation or spinal canal s tenosis. The neural foramina are patent bilaterally. C7-T1: The thecal sac has a normal configuration. There a small left posterolateral focal disc protrusion n arrowing the thecal sac. The neural foramina are patent bilaterally. CONCLUSION: Small central disc protrusion at the C3-4 level narrowing the thecal sac. No adjacent cord edema. Lef t posterolateral focal disc protrusion at C7-T1 also without cord edema. Marquise Plaza MD on March 23, 2017 at 13:42 Board Certified Radiologist. This report was verified electronically.
--- NOTE | 2017-03-23 14:10 | RADRPT ---
EXAM DATE/TIME: 03/23/2017 12:28 [facility] COMPARISON: MRI THORACIC SPINE W/O CONTRAST, March 22, 2017, 14:09. INDICATIONS : Inability to ambulate. Spinal AVM. CONTRAST: 20 cc Omniscan (gadodiamide) IV MEDICAL HISTORY : Hypertension. SURGICAL HISTORY : Orthopedic. ENCOUNTER: Initial ACUITY: 3 day PAIN SCORE: 3/10 LOCATION: Paraspinal TECHNIQUE: Multiplanar multisequence MRI of the thoracic spine was performed. FINDINGS: VERTEBRA: Normal vertebral body height. Homogeneous marrow signal except for T5 hemangioma. ALIGNMENT: Normal. CORD: Normal position and configuration. POST CONTRAST: No abnormal areas of contrast enhancement seen. T1-T2: Normal. T2-T3: The thecal sac has a normal diameter. No evidence of disc bulge or protrusion. T3-T4: The thecal sac has a normal diameter. No evidence of disc bulge or protrusion. T4-T5: The thecal sac has a normal diameter. No evidence of disc bulge or protrusion. T5-T6: The thecal sac has a normal diameter. No evidence of disc bulge or protrusion. T6-T7: The thecal sac is slightly flattened on left side. Small left paracentral disc protrusion. T7-T8: The thecal sac has a normal diameter. Small central disc protrusion. T8-T9: The thecal sac has a normal diameter. No evidence of disc bulge or protrusion. T9-T10: The thecal sac has a normal diameter. No evidence of disc bulge or protrusion. T10-T11: The thecal sac has a normal diameter. No evidence of disc bulge or protrusion. T11-T12: The thecal sac has a normal diameter. No evidence of disc bulge or protrusion. T12-L1: The thecal sac has a normal diameter. No evidence of disc bulge or protrusion. CONCLUSION: Minimal degenerative disease at T 6/ 7 and T7-8. Stable exam, no abnormal area of enhancement or cor d edema is identified. Marquise Plaza MD on March 23, 2017 at 14:06 Board Certified Radiologist. This report was verified electronically.
[2017-03-23 15:59] VITALS: BP 130/77; PULSE 86; RESP 21; TEMP 98.1; O2SAT 97
[2017-03-23 19:52] VITALS: BP 140/79; PULSE 88; RESP 17; TEMP 98; O2SAT 97
--- NOTE | 2017-03-23 19:54 | PD.CONS ---
HPI Service Neurosurgery (Coverage for Dr. Andrade) Consult Requested By Dr. Ching Jeffery Reason for Consult LE Weakness Primary Care Physician Unknown History of Present Illness This is a 37-year-old male who presents to the emergency Department with onset of bilateral lower extremity weakness that started about 3 hours ago while he was out to dinner. Patient reports that he got up from a barstool and was unable to walk and fell. He reports that for the past 3 days he has been having low back pain ever since he started up on Friday and his low back and feel right. He describes a sharp stabbing pain in the left lower back, intermittent, worse with walking. He says his back pain is nearly resolved. Today he went to an urgent care for the pain and they gave him an injection of steroids and an injection of "a pain medicine that will make you loopy like morphine". Subsequently his pain improved but he developed weakness and numbness in his legs this afternoon. He's not had any recent illness, denies any recent diarrhea, new medications, or recent vaccinations. Review of Systems ROS Review of Systems Except as stated in HPI: all other systems reviewed are Neg Past Family Social History Allergies: Coded Allergies: No Known Allergies (Unverified , 03/21/17) Past Medical History PFSH Past Medical History Diminished Hearing: No Tetanus Vaccination: < 5 Years ?: Not Past Surgical History Abdominal Surgery: No Cardiac Surgery: No Ear Surgery: No Endocrine Surgery: No Eye Surgery: Yes (PRK BILAT EYE) Social History Alcohol Use: Yes Tobacco Use: No Substance Use: No Physical Exam Vital Signs Vital Signs Date Time Temp Pulse Resp B/P (MAP) Pulse Ox O2 Delivery O2 Flow Rate FiO2 03/23/17 15:59 98.1 86 21 130/77 (94) 97 03/23/17 11:33 98.2 87 20 137/83 (101) 97 03/23/17 07:42 98.0 83 20 160/107 (124) 96 03/23/17 03:40 98.7 95 18 134/63 (86) 97 03/22/17 23:23 98.4 76 18 130/76 (94) 97 Physical Exam Physical Exam Narrative GENERAL:Well appearing, no acute distress SKIN: Focused skin assessment warm and dry. HEAD: Atraumatic. Normocephalic. EYES: Pupils equal and round. No injection or drainage. ENT: Moist mucous membranes NECK: Trachea midline. CARDIOVASCULAR: Regular rate and rhythm. No murmur appreciated. RESPIRATORY: Clear to auscultation. Breath sounds equal bilaterally. GASTROINTESTINAL: Abdomen soft, non-tender, nondistended. MUSCULOSKELETAL: No obvious deformities. NEUROLOGICAL: AA0x3. No obvious cranial nerve deficits. 5/5 strength in the bilateral lower extremities. No clonus. Hyporeflexic patellar and Achilles reflexes. No motor or sensory deficit noted. Laboratory Laboratory Tests Test 03/23/17 18:33 Result Diagram: 03/22/17 0700 03/22/17 0700 Imaging Last Impressions Thoracic Spine MRI 03/22/17 0000 Signed Impressions: Service Date/Time: Wednesday, March 22, 2017 14:09 - CONCLUSION: 1. Probable small T5 vertebral body Hemangioma. 2. Mild degenerative spondylosis of the mid thoracic spine most prominently at T6-7 with eccentric left paracentral disc osteophyte complex effacing the anterior left lateral recess and flattening the anterior cord. 3. Otherwise, no significant central canal stenosis or cord signal abnormality. Morgan Logan MD Cervical Spine MRI 03/22/17 0000 Signed Impressions: Service Date/Time: Wednesday, March 22, 2017 14:09 - CONCLUSION: 1. Multilevel degenerative spondylosis most prominently at C3-4 and C6-T1, as above. 2. No significant cord signal abnormality. Morgan Logan MD Lumbar Spine MRI 03/21/17 0000 Signed Impressions: Service Date/Time: Tuesday, March 21, 2017 22:22 - CONCLUSION: 1. Mild degenerative changes at L3/L4 and L4/L5 as above. There slight left foraminal encroachment at L3/L4 and mild right foraminal encroachment at L4/L5. 2. Otherwise normal lumbar spine MRI. Boy Olsen MD Current Medications Medications (Trade) Dose Ordered Sig/Jimena Route PRN Reason Start Time Stop Time Status Last Admin Dose Admin Sodium Chloride 1,000 ml @ 100 mls/hr Q10H IV 03/21/17 23:36 03/23/17 14:47 Sodium Chloride (NS Flush) 2 ml UNSCH PRN IV FLUSH FLUSH AFTER USING IV ACCESS 03/21/17 23:45 Sodium Chloride (NS Flush) 2 ml BID IV FLUSH 03/22/17 09:00 03/22/17 08:55 Ondansetron HCl (Zofran Inj) 4 mg Q6H PRN IVP NAUSEA OR VOMITING 03/21/17 23:45 Acetaminophen (Tylenol) 650 mg Q6H PRN PO FEVER/PAIN SCALE 1 TO 2 03/21/17 23:45 Acetaminophen/ Hydrocodone Bitart ([place] 5-325 Mg) 1 tab Q4H PRN PO PAIN SCALE 3 TO 5 03/21/17 23:45 03/22/17 08:59 Morphine Sulfate (Morphine Inj) 4 mg Q3H PRN IV PUSH Pain 6-10 03/21/17 23:45 Senna/Docusate Sodium (Janel-Colace) 1 tab BID PO 03/22/17 09:00 Magnesium Hydroxide (Milk Of Magnesia Liq) 30 ml Q12H PRN PO MILD - MODERATE CONSTIPATION 03/21/17 23:45 Sennosides (Senokot) 17.2 mg Q12H PRN PO MODERATE - SEVERE CONSTIPATION 03/21/17 23:45 Bisacodyl (Dulcolax Supp) 10 mg DAILY PRN RECTAL SEVERE CONSITIPATION 03/21/17 23:45 Lactulose (Lactulose Liq) 30 ml DAILY PRN PO SEVERE CONSITIPATION 03/21/17 23:45 Cyclobenzaprine HCl (Flexeril) 10 mg Q8H PRN PO muscle spasms 03/22/17 10:30 03/23/17 07:46 Zolpidem Tartrate (Ambien) 20 mg HS PRN PO INSOMNIA 03/22/17 18:30 03/22/17 21:06 Laboratory Tests Test 03/22/17 01:40 03/22/17 07:00 03/23/17 18:33 Urine Color YELLOW Urine Turbidity CLEAR Urine pH 5.5 Urine Specific [place] 1.019 Urine Protein NEG mg/dL Urine Glucose (UA) NEG mg/dL Urine Ketones NEG mg/dL Urine Occult Blood NEG Urine Nitrite NEG Urine Bilirubin NEG Urine Urobilinogen LESS THAN 2.0 MG/DL Urine Leukocyte Esterase NEG Urine RBC LESS THAN 1 /hpf Urine WBC 1 /hpf Urine Mucus FEW /lpf Microscopic Urinalysis Comment CULT NOT INDICATED White Blood Count 17.5 TH/MM3 Red Blood Count 4.57 MIL/MM3 Hemoglobin 14.2 GM/DL Hematocrit 41.1 % Mean Corpuscular Volume 89.8 FL Mean Corpuscular Hemoglobin 31.1 PG Mean Corpuscular Hemoglobin Concent 34.6 % Red Cell Distribution Width 13.3 % Platelet Count 259 TH/MM3 Mean Platelet Volume 9.3 FL Neutrophils (%) (Auto) 76.9 % Lymphocytes (%) (Auto) 16.3 % Monocytes (%) (Auto) 6.5 % Eosinophils (%) (Auto) 0.2 % Basophils (%) (Auto) 0.1 % Neutrophils # (Auto) 13.4 TH/MM3 Lymphocytes # (Auto) 2.8 TH/MM3 Monocytes # (Auto) 1.1 TH/MM3 Eosinophils # (Auto) 0.0 TH/MM3 Basophils # (Auto) 0.0 TH/MM3 CBC Comment DIFF FINAL Differential Comment Erythrocyte Sedimentation Rate 11 mm/hr Blood Urea Nitrogen 13 MG/DL Creatinine 0.84 MG/DL Random Glucose 102 MG/DL Total Protein 6.6 GM/DL Albumin 3.4 GM/DL Calcium Level 8.4 MG/DL Alkaline Phosphatase 71 U/L Aspartate Amino Transf (AST/SGOT) 7 U/L Alanine Aminotransferase (ALT/SGPT) 29 U/L Total Bilirubin 0.4 MG/DL Sodium Level 138 MEQ/L Potassium Level 4.1 MEQ/L Chloride Level 108 MEQ/L Carbon Dioxide Level 24.6 MEQ/L Anion Gap 5 MEQ/L Estimat Glomerular Filtration Rate 102 ML/MIN Lactate Dehydrogenase 142 U/L Total Creatine Kinase 85 U/L C-Reactive Protein 0.30 MG/DL Assessment and Plan Diagnosis: (1) Lower extremity weakness ICD Codes: R29.898 - Other symptoms and signs involving the musculoskeletal system Assessment and Plan Patient with multiple mild DDD in spine (C3-4,C6-C7, T6-7, L3-4, L4-5) - no operative lesion seen on MRI of Neuraxis - continue Neurology work-up for LE weakness - consider NCV/EMG - PT/Pain management No Neurosurgery intervention at this time. Please call with any questions of concerns. Problem Qualifiers (1) Lower extremity weakness: Qualified Codes: R29.898 - Other symptoms and signs involving the musculoskeletal system Vasquez Raphael MD Mar 23, 2017 19:54
[2017-03-23] MEDS: ZOLPIDEM TARTRATE 10 MG TAB PO PRN (19:56)
[2017-03-23 23:40] VITALS: BP 175/84; PULSE 65; RESP 17; TEMP 98.6; O2SAT 99
[2017-03-24] MEDS: SODIUM CHLOR 0.9% 1000 ML INJ 1,000 ML IV SCH (02:12)
[2017-03-24 03:29] VITALS: BP 131/76; PULSE 81; RESP 18; TEMP 98.3; O2SAT 98
[2017-03-24 07:15] VITALS: BP 138/87; PULSE 93; RESP 18; TEMP 97.5; O2SAT 98
[2017-03-24] MEDS: SODIUM CHLORIDE 0.9% FLUSH 10 ML FLUSH IV FLUSH SCH ×2 (09:00→20:53)
--- NOTE | 2017-03-24 09:08 | HHI.PR ---
Subjective Remarks Follow-up for lower back pain and lower extremity weakness. The patient states his back pain ranges between 3-5/10 in severity which he states as tolerated. The [place] and Flexeril did take the edge off the pain, but he is trying to avoid taking them if possible. He states that after the first day the strength in his legs have continued to improve. He still has some weakness in his legs especially in the right side, but he has been able to walk and he does not feel unsteady. He would let you know what's going on to avoid having this happen again and would like to follow up with the neurologist. He was originally given a shot of Toradol and Decadron in both gluteals Friday. Objective Vitals Vital Signs Date Time Temp Pulse Resp B/P (MAP) Pulse Ox O2 Delivery O2 Flow Rate FiO2 03/24/17 07:15 97.5 93 18 138/87 (104) 98 03/24/17 03:29 98.3 81 18 131/76 (94) 98 03/23/17 23:40 98.6 65 17 175/84 (114) 99 03/23/17 19:52 98.0 88 17 140/79 (99) 97 03/23/17 15:59 98.1 86 21 130/77 (94) 97 03/23/17 11:33 98.2 87 20 137/83 (101) 97 I/O 03/23/17 03/23/17 03/23/17 03/24/17 03/24/17 03/24/17 07:00 15:00 23:00 07:00 15:00 23:00 Intake Total 1000 ml 1000 ml 800 ml Output Total 2900 ml Balance 1000 ml -1900 ml 800 ml Intake IV Total 1000 ml 1000 ml 800 ml Output Urine Total 2900 ml # Voids 1 Result Diagram: 03/22/17 0700 03/22/17 0700 Imaging Last Impressions Thoracic Spine MRI 03/23/17 0000 Signed Impressions: Service Date/Time: Thursday, March 23, 2017 12:28 - CONCLUSION: Minimal degenerative disease at T 6/ 7 and T7-8. Stable exam, no abnormal area of enhancement or cord edema is identified. Marquise Plaza MD Cervical Spine MRI 03/23/17 0000 Signed Impressions: Service Date/Time: Thursday, March 23, 2017 12:28 - CONCLUSION: Small central disc protrusion at the C3-4 level narrowing the thecal sac. No adjacent cord edema. Left posterolateral focal disc protrusion at C7-T1 also without cord edema. Marquise Plaza MD Brain MRI 03/23/17 0000 Signed Impressions: Service Date/Time: Thursday, March 23, 2017 12:28 - CONCLUSION: Normal examination. Marquise Plaza MD Lumbar Spine MRI 03/21/17 0000 Signed Impressions: Service Date/Time: Tuesday, March 21, 2017 22:22 - CONCLUSION: 1. Mild degenerative changes at L3/L4 and L4/L5 as above. There slight left foraminal encroachment at L3/L4 and mild right foraminal encroachment at L4/L5. 2. Otherwise normal lumbar spine MRI. Boy Olsen MD Objective Remarks GENERAL: Well-developed well-nourished. In no acute distress. SKIN: Warm and dry. No lesions noted. HEENT: Normocephalic. Pupils equal and round. Mucous membranes pink and moist. CARDIOVASCULAR: Regular rate and rhythm. No murmur appreciated. RESPIRATORY: No accessory muscle use. Clear to auscultation. Breath sounds equal bilaterally. GASTROINTESTINAL: Abdomen soft, non-tender, nondistended. Bowel sounds x4. MUSCULOSKELETAL: No obvious deformities. No clubbing or cyanosis. No edema. NEUROLOGICAL: Awake and alert. Right lower extremity strength 4.5/5, 5/5 on the left. Moves upper and lower extremities spontaneously. Normal speech. PSYCHIATRIC: Appropriate mood and affect; insight and judgment normal. A/P Problem List: (1) Lower extremity weakness ICD Code: R29.898 - Other symptoms and signs involving the musculoskeletal system Status: Acute (2) Back pain ICD Code: M54.9 - Dorsalgia, unspecified Status: Acute (3) Dehydration ICD Code: E86.0 - Dehydration Status: Resolved (4) Leukocytosis ICD Code: D72.829 - Elevated white blood cell count, unspecified Status: Acute Assessment and Plan 37-year-old male with no significant past medical history, s/p 20years service with [employer], presents with a 3day history of intractable low back pain, and acute onset lower extremity weakness Acute Bilateral Lower Extremity Weakness: Shortly after receiving bilateral gluteal injections of IM steroid and NSAID. 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 Possible medication side effect. + Hyporeflexia. Possible myelopathy. Not consistent with Guillain [place] per neurology Imaging: Lumbar MRI with mild degenerative changes, no acute findings. Cervical MRI with multilevel degenerative changes; no significant cord signal abnormality. Thoracic MRI with minimal degenerative disease; probable small T5 vertebral body hemagioma. -Checked for possible muscle disease-CPK/ESR/LDH wnl, U/a negative, aldolase pending -S/p steroid injection, ? steroid myopathy however very rapid onset-would need muscle biopsy. -Consulted Neurology, appreciate input, imaging as above and recommended a neurosurgery consult. -Neurosurgery consulted, and no operative lesions, continue neurology workup , consider EMG. -Consult rehabilitation medicine for lower extremity EMG Lumbar Pain: s/p steroid/NSAID injection at Urgent Care, pain currently improved and tolerable per patient. -Continue w/ [place] and Flexeril as needed. -Heating pad -Consulted PT, recommended outpatient PT. Leukocytosis: WBC 16, possibly related to steroids, however injection only few hours prior. No signs of infection at this time. Afebrile. UA negative. -Repeat CBC Dehydration: GFR 74, Cr 1.11. Given IVF for hydration, repeat labs show improvement with Cr 0.84. -Continue oral hydration. DVT Prophylaxis: SCD/Teds. Discharge Planning Follow-up neurology recommendations. Possible discharge planning if cleared by neurology. Problem Qualifiers (1) Lower extremity weakness: Qualified Codes: R29.898 - Other symptoms and signs involving the musculoskeletal system (2) Back pain: Qualified Codes: M54.5 - Low back pain Corey Zendejas Mar 24, 2017 09:08
[2017-03-24 11:58] VITALS: BP 141/88; PULSE 88; RESP 18; TEMP 97.8; O2SAT 97
[2017-03-24 16:01] VITALS: BP 134/82; PULSE 89; RESP 18; TEMP 98; O2SAT 98
--- NOTE | 2017-03-24 18:34 | HHI.PR ---
Review/Management Diagnosis bilateral LE weakness of abrupt onset now improving--possible thoracic myelopathy. Plan Lumbar Puncture to further assess for transverse myelitis Diagnosis/Plan: (1) Lower extremity weakness ICD Codes: R29.898 - Other symptoms and signs involving the musculoskeletal system Status: Acute Subjective Subjective Comments No acute events reported He feels LE strength is improving but still weak mainly in right leg Neurosurgery consult appreciated. Active Medications Current Medications Medications (Trade) Dose Ordered Sig/Jimena Route Start Time Stop Time Status Last Admin (NS Flush) 2 ml UNSCH PRN IV FLUSH 03/21/17 23:45 (NS Flush) 2 ml BID IV FLUSH 03/22/17 09:00 03/24/17 09:00 (Zofran Inj) 4 mg Q6H PRN IVP 03/21/17 23:45 (Tylenol) 650 mg Q6H PRN PO 03/21/17 23:45 ([place] 5-325 Mg) 1 tab Q4H PRN PO 03/21/17 23:45 03/22/17 08:59 (Morphine Inj) 4 mg Q3H PRN IV PUSH 03/21/17 23:45 (Milk Of Magnesia Liq) 30 ml Q12H PRN PO 03/21/17 23:45 (Senokot) 17.2 mg Q12H PRN PO 03/21/17 23:45 (Dulcolax Supp) 10 mg DAILY PRN RECTAL 03/21/17 23:45 (Lactulose Liq) 30 ml DAILY PRN PO 03/21/17 23:45 (Flexeril) 10 mg Q8H PRN PO 03/22/17 10:30 03/23/17 07:46 (Ambien) 20 mg HS PRN PO 03/22/17 18:30 03/23/17 19:56 Allergies Allergies Coded Allergies No Known Allergies (Unverified03/21/17) Exam I&O / VS 03/24/17 03/24/17 03/25/17 15:00 23:00 07:00 Intake Total 800 ml 750 ml Output Total 1100 ml Balance 800 ml -350 ml Intake Oral 750 ml IV Total 800 ml Output Urine Total 1100 ml Vital Signs Date Time Temp Pulse Resp B/P (MAP) Pulse Ox O2 Delivery O2 Flow Rate FiO2 03/24/17 16:01 98.0 89 18 134/82 (99) 98 03/24/17 11:58 97.8 88 18 141/88 (105) 97 03/24/17 07:15 97.5 93 18 138/87 (104) 98 03/24/17 03:29 98.3 81 18 131/76 (94) 98 03/23/17 23:40 98.6 65 17 175/84 (114) 99 03/23/17 19:52 98.0 88 17 140/79 (99) 97 Exam Comments alert, speech normal CN intact MOTOR 5/5 BUE and 4+/5 right iliopsoas. 5/5 left iliopsoas 5/5 bilateral quadriceps. 5/5 right hamstring and 5/5 left hamstring. 5/5 tibialis anterior bilaterally DTR 1+ symmetric Objective Radiology Results MRI brain normal MRI cervical thoracic spines with contrast--no sign of AVM Micro and Labs Laboratory Tests Test 03/23/17 18:33 Vitamin B12 Level 401 Problem Qualifiers (1) Lower extremity weakness: Qualified Codes: R29.898 - Other symptoms and signs involving the musculoskeletal system Ricky Montaño PhD Mar 24, 2017 18:34
[2017-03-24 19:43] LABS: APTT (PATIENT) 25.1 SEC (24.3-30.1); INTERNATIONAL NORMALIZED RATIO 0.9 RATIO; PROTHROMBIN TIME - PATIENT 10.2 SEC (9.8-11.6)
[2017-03-24 19:46] VITALS: BP 147/91; PULSE 84; RESP 20; TEMP 97.6; O2SAT 97
[2017-03-24] MEDS: ZOLPIDEM TARTRATE 10 MG TAB PO PRN (20:54)
[2017-03-25 00:19] VITALS: BP 151/78; PULSE 100; RESP 19; TEMP 98.4; O2SAT 98
[2017-03-25 03:28] VITALS: BP 133/71; PULSE 100; RESP 18; TEMP 98.1; O2SAT 96
[2017-03-25 07:30] VITALS: BP 137/92; PULSE 90; RESP 18; TEMP 97.8; O2SAT 97
[2017-03-25] MEDS: SODIUM CHLORIDE 0.9% FLUSH 10 ML FLUSH IV FLUSH SCH (09:00)
--- NOTE | 2017-03-25 10:16 | PD.RAD ---
Post Procedure Progress Note Pre Procedure Diagnosis: (1) Lower extremity weakness (2) Back pain Post Procedure Diagnosis: (1) Lower extremity weakness (2) Back pain Procedure Date: Mar 25, 2017 Supervising Radiologist: Danyel Main Proceduralist/Assist: Muriel Weiner, RT(R), Khloe Austin, RT(R) Anesthesia: Local Plan of Activity Patient to Unit: ROPU Patient Condition: Good See PACS Report for procedural detail/treatment Spinal Procedure Lumbar Puncture L3-L4 Fluid Removal (CCs): 17 Fluid Description: Clear Puncture Time: 09:45 Danyel Main MD Mar 25, 2017 10:16
[2017-03-25 11:16] VITALS: BP 149/93; PULSE 119; RESP 20; TEMP 98; O2SAT 97
[2017-03-25 11:17] LABS: CSF NEUTROPHILS 0 %
[2017-03-25 11:18] LABS: CSF LYMPHOCYTES 67 %; CSF MONOCYTES 33 %
[2017-03-25 11:28] LABS: GROSS BLOOD TUBE #1 TRACE (0); SUPERNATE COLOR TUBE #1 CLEAR (CLEAR)
[2017-03-25 11:29] LABS: GROSS BLOOD TUBE #2 TRACE (0); GROSS BLOOD TUBE #3 TRACE (0); GROSS BLOOD TUBE #4 TRACE (0); SUPERNATE COLOR TUBE #2 CLEAR (CLEAR); SUPERNATE COLOR TUBE #3 CLEAR (CLEAR); SUPERNATE COLOR TUBE #4 CLEAR (CLEAR); WBC TUBE #3 5 /MM3 (0-10)
--- NOTE | 2017-03-25 12:03 | HHI.PR ---
Subjective Remarks Follow-up for lower back pain and lower extremity weakness. The patient is seen after LP today. The patient states that his lower extremity weakness continues to improve and is nearly back to normal. He's been ambulating with no difficulties. He states that his lower back pain is tolerable. He does have prescriptions for tramadol and cyclobenzaprine as needed for back pain at home if he needs it. He would like to go home if possible for follow-up with PT and neurology. Objective Vitals Vital Signs Date Time Temp Pulse Resp B/P (MAP) Pulse Ox O2 Delivery O2 Flow Rate FiO2 03/25/17 11:16 98.0 119 20 149/93 (111) 97 03/25/17 07:30 97.8 90 18 137/92 (107) 97 03/25/17 03:28 98.1 100 18 133/71 (91) 96 03/25/17 00:19 98.4 100 19 151/78 (102) 98 03/24/17 19:46 97.6 84 20 147/91 (109) 97 03/24/17 16:01 98.0 89 18 134/82 (99) 98 I/O 03/24/17 03/24/17 03/24/17 03/25/17 03/25/17 03/25/17 07:00 15:00 23:00 07:00 15:00 23:00 Intake Total 800 ml 750 ml Output Total 1100 ml Balance 800 ml -350 ml Intake Oral 750 ml IV Total 800 ml Output Urine Total 1100 ml Result Diagram: 03/22/17 0700 03/22/17 0700 Imaging Last Impressions Thoracic Spine MRI 03/23/17 0000 Signed Impressions: Service Date/Time: Thursday, March 23, 2017 12:28 - CONCLUSION: Minimal degenerative disease at T 6/ 7 and T7-8. Stable exam, no abnormal area of enhancement or cord edema is identified. Marquise Plaza MD Cervical Spine MRI 03/23/17 0000 Signed Impressions: Service Date/Time: Thursday, March 23, 2017 12:28 - CONCLUSION: Small central disc protrusion at the C3-4 level narrowing the thecal sac. No adjacent cord edema. Left posterolateral focal disc protrusion at C7-T1 also without cord edema. Marquise Plaza MD Brain MRI 03/23/17 0000 Signed Impressions: Service Date/Time: Thursday, March 23, 2017 12:28 - CONCLUSION: Normal examination. Marquise Plaza MD Lumbar Spine MRI 03/21/17 0000 Signed Impressions: Service Date/Time: Tuesday, March 21, 2017 22:22 - CONCLUSION: 1. Mild degenerative changes at L3/L4 and L4/L5 as above. There slight left foraminal encroachment at L3/L4 and mild right foraminal encroachment at L4/L5. 2. Otherwise normal lumbar spine MRI. Boy Olsen MD Objective Remarks GENERAL: Well-developed well-nourished. In no acute distress. SKIN: Warm and dry. No lesions noted. HEENT: Normocephalic. Pupils equal and round. Mucous membranes pink and moist. CARDIOVASCULAR: Regular rate and rhythm. No murmur appreciated. RESPIRATORY: No accessory muscle use. Clear to auscultation. Breath sounds equal bilaterally. GASTROINTESTINAL: Abdomen soft, non-tender, nondistended. Bowel sounds x4. MUSCULOSKELETAL: No obvious deformities. No clubbing or cyanosis. No edema. NEUROLOGICAL: Awake and alert. Moves upper and lower extremities spontaneously. Normal speech. Strength 5/5 with dorsiflexion and plantar flexion. PSYCHIATRIC: Appropriate mood and affect; insight and judgment normal. A/P Problem List: (1) Lower extremity weakness ICD Code: R29.898 - Other symptoms and signs involving the musculoskeletal system Status: Acute (2) Back pain ICD Code: M54.9 - Dorsalgia, unspecified Status: Acute (3) Dehydration ICD Code: E86.0 - Dehydration Status: Resolved (4) Leukocytosis ICD Code: D72.829 - Elevated white blood cell count, unspecified Status: Acute Assessment and Plan 37-year-old male with no significant past medical history, s/p 20years service with [employer], presents with a 3day history of intractable low back pain, and acute onset lower extremity weakness Acute Bilateral Lower Extremity Weakness: Shortly after receiving bilateral gluteal injections of IM steroid and NSAID. 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 Possible medication side effect. + Hyporeflexia. Possible myelopathy. Not consistent with Guillain [place] per neurology Imaging: Lumbar MRI with mild degenerative changes, no acute findings. Cervical MRI with multilevel degenerative changes; no significant cord signal abnormality. Thoracic MRI with minimal degenerative disease; probable small T5 vertebral body hemagioma. -Checked for possible muscle disease-CPK/ESR/LDH wnl, U/a negative, aldolase pending -S/p steroid injection, discussed with neurology, doubts steroid myopathy with only one dose -Consulted Neurology, appreciate input, imaging as above and recommended a neurosurgery consult. -Neurosurgery consulted, and no operative lesions, continue neurology workup , consider EMG. -Consulted rehabilitation medicine for lower extremity EMG, can follow-up for this as outpatient in though -Discussed with neurology, Dr. Montaño, who recommended an LP to rule out transverse myelitis and initial LP findings are not consistent with this. Lumbar Pain: s/p steroid/NSAID injection at Urgent Care, pain currently improved and tolerable per patient. -Continue w/ [place] and Flexeril as needed. -Heating pad -Consulted PT, recommended outpatient PT. Leukocytosis: WBC 16, possibly related to steroids, however injection only few hours prior. No signs of infection at this time. Afebrile throughout admission. UA negative. Dehydration: GFR 74, Cr 1.11. Given IVF for hydration, repeat labs show improvement with Cr 0.84. -Continue oral hydration. DVT Prophylaxis: SCD/Teds. Discharge Planning Follow-up neurology recommendations. Possible discharge planning if cleared by neurology. Problem Qualifiers (1) Lower extremity weakness: Qualified Codes: R29.898 - Other symptoms and signs involving the musculoskeletal system (2) Back pain: Qualified Codes: M54.5 - Low back pain Corey Zendejas Mar 25, 2017 12:03
--- NOTE | 2017-03-25 13:28 | HHI.DS ---
Discharge Summary Admission Date Mar 21, 2017 at 23:42 Discharge Date: Mar 25, 2017 Admitting Diagnosis weakness (1) Lower extremity weakness ICD Code: R29.898 - Other symptoms and signs involving the musculoskeletal system Diagnosis: Principal Status: Acute (2) Back pain ICD Code: M54.9 - Dorsalgia, unspecified Diagnosis: Principal Status: Acute Procedures Lumbar puncture 03/25/17 Brief History - From Admission This is a 37-year-old male who presents with onset of bilateral lower extremity weakness that started about 3 hours ago while he was out to dinner. Patient reports that he got up from a barstool and was unable to walk and fell. He reports that for the past 3 days he has been having low back pain ever since he started up on Friday and his low back and feel right. He describes a sharp stabbing pain in the left lower back, intermittent, worse with walking. He says his back pain is nearly resolved. Today he went to an urgent care for the pain and they gave him an injection of steroids and an injection of "a pain medicine that will make you loopy like morphine". Subsequently his pain improved but he developed weakness and numbness in his legs this afternoon. He' s not had any recent illness, denies any recent diarrhea, new medications, or recent vaccinations. CBC/BMP: 03/22/17 0700 03/22/17 0700 Significant Findings Laboratory Tests Test 03/23/17 18:33 03/24/17 19:10 03/25/17 09:45 CSF RBC (Tube 3) 3 /MM3 (NONE) CSF Gross Blood (Tube 4) TRACE (0) PE at Discharge GENERAL: Well-developed well-nourished. In no acute distress. SKIN: Warm and dry. No lesions noted. HEENT: Normocephalic. Pupils equal and round. Mucous membranes pink and moist. CARDIOVASCULAR: Regular rate and rhythm. No murmur appreciated. RESPIRATORY: No accessory muscle use. Clear to auscultation. Breath sounds equal bilaterally. GASTROINTESTINAL: Abdomen soft, non-tender, nondistended. Bowel sounds x4. MUSCULOSKELETAL: No obvious deformities. No clubbing or cyanosis. No edema. NEUROLOGICAL: Awake and alert. Moves upper and lower extremities spontaneously. Normal speech. Strength 5/5 with dorsiflexion and plantar flexion. PSYCHIATRIC: Appropriate mood and affect; insight and judgment normal. Pt update on day of discharge Discussed LP findings with neurology, Dr. Montaño, recommended outpatient follow- up with him in 2 weeks and patient cleared for discharge. EMG was performed and patient instructed to follow up for results of this. Hospital Course 37-year-old male with no significant past medical history, s/p 20years service with [employer], presents with a 3day history of intractable low back pain, and acute onset lower extremity weakness Acute Bilateral Lower Extremity Weakness: Shortly after receiving bilateral gluteal injections of IM steroid and NSAID. 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 Possible medication side effect. + Hyporeflexia. Possible myelopathy. Not consistent with Guillain [place] per neurology Imaging: Lumbar MRI with mild degenerative changes, no acute findings. Cervical MRI with multilevel degenerative changes; no significant cord signal abnormality. Thoracic MRI with minimal degenerative disease; probable small T5 vertebral body hemagioma. -Checked for possible muscle disease-CPK/ESR/LDH wnl, U/a negative, aldolase pending -S/p steroid injection, discussed with neurology, doubts steroid myopathy with only one dose -Consulted Neurology, appreciate input, imaging as above and recommended a neurosurgery consult. -Neurosurgery consulted, and no operative lesions, continue neurology workup , consider EMG. -Consulted rehabilitation medicine, performed lower extremity EMG, can follow -up for this as outpatient with neurology -Neurology ordered an LP to rule out transverse myelitis and initial LP findings are not consistent with this. -Outpatient follow-up with neurology Lumbar Pain: s/p steroid/NSAID injection at Urgent Care, pain currently improved and tolerable per patient. -Continue w/ Toradol and cyclobenzaprine if needed, although the patient declines medications. -Consulted PT, recommended outpatient PT. Pt Condition on Discharge: Stable Discharge Disposition: Discharge Home Discharge Time: > 30 minutes Discharge Instructions DIET: Follow Instructions for: As Tolerated, No Restrictions Activities you can perform: Regular-No Restrictions Follow up Referrals: Neurology - 2 Weeks with Ricky Montaño PhD PCP Follow-up - 1 Week Continued Medications: Zolpidem (Ambien) 10 Mg Tab 20 MG PO HS PRN for INSOMNIA, TAB 0 Refills Corey Zendejas Mar 25, 2017 13:28
--- NOTE | 2017-03-25 15:03 | PD.CONS ---
HPI Service Rehabilitation Medicine Consult Requested By Dr. Zendejas Reason for Consult Comprehensive rehabilitation evaluation. Primary Care Physician Unknown History of Present Illness History of present illness; Ricky Aguilera is a 37 year old male who presented to the ED 03/21/17 with 3 day history of back pain for which he underwent steroid injection and pain medication through urgent care who developed the acute onset of LE weakness the day of presentation to ED. MRI of the LS spine 03/21/17 showed mild degenerative changes L3/L4 and L4/L5 with slight left foraminal encroachment L3/L4 and slight right foraminal encroachment L4/L5. Thoracic spine MRI 03/22/17 showed probable small T5 vertebral body hemangioma, mild degenerative spondylosis T6-T7 with eccentric left paracentral disc osteophyte complex effacing the anterior left lateral recess and flattening the anterior cord. MRI of the cervical spine 03/22/17 showed multilevel degenerative spondylosis most prominent at C3/C4 and C6/T1. PMH/PSH: Left gastroc lengthening Bilateral foot arch surgery Medications/Allergies: Reviewed Past Family Social History Allergies: Coded Allergies: No Known Allergies (Unverified , 03/21/17) Exam I&O / VS Vital Signs Date Time Temp Pulse Resp B/P (MAP) Pulse Ox O2 Delivery O2 Flow Rate FiO2 03/25/17 11:16 98.0 119 20 149/93 (111) 97 03/25/17 07:30 97.8 90 18 137/92 (107) 97 03/25/17 03:28 98.1 100 18 133/71 (91) 96 03/25/17 00:19 98.4 100 19 151/78 (102) 98 03/24/17 19:46 97.6 84 20 147/91 (109) 97 03/24/17 16:01 98.0 89 18 134/82 (99) 98 Exam Comments Nerve Conduction Studies Anti Sensory Summary Table Site NR Peak (ms) Norm Peak (ms) P-T Amp (V) Norm P-T Amp Site1 Site2 Delta-P (ms) Dist (cm) Toño (m/s) Norm Toño (m/s) Left Median Anti Sensory (2nd Digit) 22.4C Wrist 3.8 <3.6 15.0 >10 Wrist 2nd Digit 3.8 14.0 >39 3.5 16.3 Elbow Wrist 2.6 0.0 >48 Left Radial Anti Sensory (Base 1st Digit) 22.3C Wrist 2.0 <3.1 13.6 Wrist Base 1st Digit 2.0 0.0 2.1 30.3 Left Sural Anti Sensory (Lat Mall) 22.3C Calf 1.8 <4.0 8.9 >5.0 Calf Lat Mall 1.8 14.0 >35 2.0 37.3 Right Sural Anti Sensory (Lat Mall) 22.3C Calf 3.1 <4.0 9.9 >5.0 Calf Lat Mall 1.3 14.0 >35 3.0 5.7 Left Ulnar Anti Sensory (5th Digit) 22.4C Wrist 2.9 <3.7 18.5 >15.0 Wrist 5th Digit 2.9 14.0 >38 3.9 26.6 B Elbow Wrist 1.0 0.0 >47 Motor Summary Table Site NR Onset (ms) Norm Onset (ms) O-P Amp (mV) Norm O-P Amp Site1 Site2 Delta- 0 (ms) Dist (cm) Toño (m/s) Norm Toño (m/s) Left Median Motor (Abd Poll Brev) 22.3C Wrist 4.2 <4.2 12.1 >5 Elbow Wrist 4.1 20.5 50 >50 Elbow 8.3 8.9 Left Peroneal Motor (Ext Dig Brev) 22.3C Ankle 6.0 <6.1 2.1 >2.5 B Fib Ankle 8.2 34.0 41 >38 B Fib 14.2 1.6 Right Peroneal Motor (Ext Dig Brev) 22.3C Ankle 5.1 <6.1 3.1 >2.5 B Fib Ankle 7.5 35.0 47 >38 B Fib 12.6 2.5 Left Tibial Motor (Abd Wills Brev) 22.3C Ankle 8.0 <6.1 11.3 >3.0 Knee Ankle 10.6 45.0 42 >35 Knee 18.6 9.6 Right Tibial Motor (Abd Wills Brev) 22.3C Ankle 6.9 <6.1 7.1 >3.0 Knee Ankle 11.3 46.0 41 >35 Knee 18.2 5.0 Left Ulnar Motor (Abd Dig Minimi) 22.4C Wrist 2.7 <4.2 9.2 >3 Elbow Wrist 4.0 22.0 55 >53 Elbow 6.7 7.6 F Wave Studies NR F-Lat (ms) Lat Norm (ms) L-R F-Lat (ms) L-R Lat Norm Left Median (Mrkrs) (Abd Poll Brev) 22.4C 29.28 <33 <2.2 Right Peroneal (Mrkrs) (EDB) 22.3C 47.71 <60 7.71 <5.1 Left Tibial (Mrkrs) (Abd Hallucis) 22.3C 59.79 <61 2.80 <5.7 Right Tibial (Mrkrs) (Abd Hallucis) 22.3C 56.99 <61 2.80 <5.7 Left Ulnar (Mrkrs) (Abd Dig Min) 22.3C 20.00 <36 <2.5 EMG Side Muscle Nerve Root Ins Act Fibs Psw Amp Dur Poly Recrt Int Pat Comment Left VastusMed Femoral L2-4 Nml Nml Nml Nml Nml 0 Nml Nml Left AntTibialis Dp Br Peron L4-5 Nml Nml Nml Nml Nml 0 Nml Nml Left Peroneus Long Sup Br Peron L5-S1 Nml Nml Nml Nml Nml 0 Nml Nml Left MedGastroc Tibial S1-2 Nml Nml Nml Nml Nml 0 Nml Nml Left AbdHallucis MedPlantar S1-2 Nml Nml Nml Nml Nml 0 Nml Nml Right VastusMed Femoral L2-4 Nml Nml Nml Nml Nml 0 Nml Nml Right AntTibialis Dp Br Peron L4-5 Nml Nml Nml Nml Nml 0 Nml Nml Right Peroneus Long Sup Br Peron L5-S1 Nml Nml Nml Nml Nml 0 Nml Nml Right MedGastroc Tibial S1-2 Nml Nml Nml Nml Nml 0 Nml Nml Right AbdHallucis MedPlantar S1-2 Nml Nml Nml Nml Nml 0 Nml Nml Assessment and Plan Diagnosis: (1) Lower extremity weakness ICD Codes: R29.898 - Other symptoms and signs involving the musculoskeletal system Status: Acute Qualifiers: Laterality: bilateral Qualified Codes: R29.898 - Other symptoms and signs involving the musculoskeletal system Assessment EMG & NCV Findings: Evaluation of the Left Peroneal Motor nerve showed reduced amplitude (2.1 mV). The Left Tibial Motor and the Right Tibial Motor nerves showed mildly prolonged distal onset latency (L8.0, R6.9 ms). All remaining nerves (as indicated in the following tables) were within normal limits. All F Wave latencies were within normal limits. All examined muscles (as indicated in the following table) showed no evidence of electrical instability. 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 Findings are not consistent with a generalized neuropathic process. Clinical correlation recommended. Pricilla Hudson MD Mar 25, 2017 15:03
--- NOTE | 2017-03-25 15:32 | RADRPT ---
EXAM DATE/TIME: 03/25/2017 09:41 [facility] COMPARISON: No previous studies available for comparison. INDICATIONS : Patient presents with bilateral LE weakness of abrubt onset, in need of lumbar puncture to further as sess for transverse myelitis. MEDICAL HISTORY : Hypertension SURGICAL HISTORY : None ENCOUNTER: Initial ACUITY: 4 -6 days PAIN SCORE: 5/10 LOCATION: Lower back LUMBAR PUNCTURE TIME: 9:45 FLUORO TIME: .41 minutes IMAGE SERIES: 1 ACCESS LEVEL: L3-4 FLUID: 17 cc of clear CSF was collected and sent to the laboratory for analysis. PROCEDURE : 1. Fluoroscopic guided lumbar puncture. The risks, benefits and alternatives to the procedure were explained and verbal and written consent w as obtained. The site was prepped in sterile fashion. Full sterile technique was used, including ca p, mask, sterile gloves and gown and a large sterile sheet. Hand hygiene and 2% chlorhexidine and/or betadine/alcohol prep was utilized per protocol for cutaneous antisepsis. The skin and subcutaneous tissues were infiltrated with local anesthetic solution. With fluoroscopic guidance the lumbar thecal sac was punctured at the level above. The fluid describ ed above was removed without difficulty. The patient tolerated the procedure well and there were no complications. CONCLUSION: Uncomplicated fluoroscopically guided lumbar puncture. Danyel Main MD on March 25, 2017 at 15:29 Board Certified Radiologist. This report was verified electronically.
[2017-03-27 16:30] LABS: ALBUMIN SERUM 3820 mg/dL (3200 - 4800); IGG CSF 1.4 mg/dL (<=8.1); IGG INDEX CSF 0.56 (<=0.85); IGG SERUM 943 mg/dL (767 - 1590); IGG/ALBUMIN CSF 0.14 (<=0.21); IGG/ALBUMIN SERUM 0.25 (<=0.40); OLIGOCLONAL BANDING CSF 0 bands; OLIGOCLONAL BANDING INTERPRET 0 bands (<4); OLIGOCLONAL BANDING SERUM 0 bands
[2017-03-27 17:15] LABS: LYME IGG IMMUNOBLOT CSF None Detected bands (None Detected); LYME IGM IMMUNOBLOT CSF None Detected bands (None Detected)
[2017-03-28 10:14] LABS: CSF CRYPTOCOCCUS AG CONF ND (NOT DETECTD)
[2017-03-28 23:54] LABS: VDRL CSF NON-REACTIVE (NON-REACTVE)
== END 2017-03-25 14:46 | disposition home or self-care (01) ==
LOC: NEPC 19:26 → NEDA 23:42 → NEPGCP 03-22 01:12
PROVIDERS: ADMIT Internal Medicine; ATTEND Internal Medicine
DX: R29.898 Other symptoms and signs involving the musculoskeletal system (principal); M54.5 Low back pain; E86.0 Dehydration; D72.829 Elevated white blood cell count, unspecified; R20.0 Anesthesia of skin; R00.0 Tachycardia, unspecified; I10 Essential (primary) hypertension; M47.896 Other spondylosis, lumbar region; M47.892 Other spondylosis, cervical region; M47.894 Other spondylosis, thoracic region; M51.24 Other intervertebral disc displacement, thoracic region; M25.78 Osteophyte, vertebrae; W19.XXXA Unspecified fall, initial encounter; Z23 Encounter for immunization
CPT/HCPCS: 62270; 70553; 72141; 72146; 72148; 72156; 72157; 77003; 80053; 81001; 82040; 82042; 82085; 82550; 82607; 82784; 82945; 83615; 83873; 83916; 84157; 85025; 85610; 85652; 85730; 86140; 86403; 86592; 86618; 87070; 87102; 87205; 87206; 89051; 90686; 90732; 96360; 96361; 96372; A9579; G0378; G8987-GP; G8988-GP; J7030; Q2038